=== PATIENT | female | born 1985 | race Caucasian/White ===

== ENCOUNTER 2016-11-03 07:01 | Inpatient (IN) | payer SELFPAY ==
[2016-11-03] MEDS ORDERED: Sodium Chloride 0.9% 10 ML Syringe FLUSH PRN ×2 (07:12→07:27)
[2016-11-03] MEDS ORDERED: Ampicillin 2 GM in Sodium Chloride 0.9% 100 ML IV ONE ×4 (07:45)
[2016-11-03] MEDS ORDERED: Sodium Chloride 0.9% 250 ML IV SCH (08:00)
--- NOTE | 2016-11-03 11:20 | US ---
INDICATION: position, post version. To make sure head is down and hand not before the head. OB ULTRASOUND LIMITED: Multiple ultrasonic images were obtained and revealed a cephalic-presenting fetus with spine on the maternal right. brow is facing to the left. Placenta is anterior fundal, grade 1-2, without evidence of previa. A normal amount of amniotic fluid was seen. Regular heart rate of 140 BPM was noted. No adnexal mass lesion or free fluid collection was demonstrated. hand is noted along side the face - jaw area. The second hand was just below it. No hand was caudal to the head. IMPRESSION: Cephalic presentation. No hand presenting. MTDD
[2016-11-03] MEDS ORDERED: fentaNYL 300 MCG in Ropivacaine 200 ML IV ONE (13:25)
[2016-11-03] MEDS ORDERED: fentaNYL 100 MCG/2 ML SDV EPIDUR ONE (13:25)
[2016-11-03] MEDS ORDERED: Lactated Ringers 1,000 ML IV ONE (13:30)
[2016-11-03] MEDS ORDERED: Lactated Ringers 1,000 ML IV SCH (14:20)
[2016-11-03] MEDS ORDERED: Naloxone 0.4 MG in Sodium Chloride 0.9% 100 ML IV PRN (14:57)
[2016-11-03] MEDS ORDERED: Promethazine 25 MG/ML SDV IV PRN (14:57)
[2016-11-03] MEDS ORDERED: diphenhydrAMINE 50 MG/ML SDV IVPUSH PRN (14:57)
[2016-11-03] MEDS ORDERED: ePHEDrine 50 MG/ML SDV IVPUSH PRN (14:57)
[2016-11-03] MEDS ORDERED: Naloxone 0.4 MG/ML SDV IVPUSH PRN (14:57)
[2016-11-03] MEDS ORDERED: Ondansetron 4 MG/2 ML SDV IVPUSH PRN (14:58)
[2016-11-03] MEDS ORDERED: Oxytocin 10 Units/1 ML SDV IM ONE (15:30)
[2016-11-03] MEDS: Ibuprofen 600 MG Tab PO PRN ×2 (16:30→21:46)
[2016-11-04] MEDS: Ibuprofen 600 MG Tab PO PRN (09:41)
--- NOTE | 2016-11-04 14:22 | PN ---
DATE SEEN: 11/04/2016 SUBJECTIVE: Annie Watts is a 31-year-old multigravida female. day 1, no complaints or concerns. Little cramping with nursing, nursing is going well, minimal perineal discomfort. Voiding without difficulty. PHYSICAL EXAMINATION: U-1 tone satisfactory, perineum intact. day 1, no problems. PLAN: No hemoglobin was performed. Blood loss was minimal. Complementary care and well being. Plan discharge tomorrow 11/05. /[id number] /MARTA
[2016-11-04 19:02] VITALS: BP 108/62
--- NOTE | 2016-11-04 19:04 | HP ---
ADMISSION DATE: 11/03/2016 HISTORY OF PRESENT ILLNESS: Annie Watts is a multigravida female, 39 weeks gestation admitted for induction of labor. CLINICAL INDICATION: Term , history of transverse lie with manipulation one week ago, satisfactory well being, and favorable cervix. Please see records. PHYSICAL EXAMINATION: VITAL SIGNS: Stable. Pelvic exam revealed a 3 cm dilatation, 50% effaced, -1 station. Ultrasound confirmed vertex presentation without hand presentation. Risks and benefits discussed about induction, agreed to. Amniotomy was performed with clear fluid. Labor began in earnest. An epidural was placed with good analgesic benefit at 5 cm. She went to complete within a very brief time. Satisfactory well being. No hypertensive related issues. When complete, when asked to participate with delivery, full anterior cervix removed with one push without difficulty. The second stage of labor progressed well. Over the course of about 20 minutes from maternal effort improved, the child was delivered within an intact perineum in MICH presentation. Both nares and oropharynx were suctioned, no nuchal cord delivered without difficulty; was re-suctioned, warmed, gently cleanse, placed on mom's tummy. Delayed cord clamping until absent palpable cord pulse, cord blood was stripped toward the infant. Female , 7 pounds 2 ounces. scores are 9 and 9. Cord was doubly clamped, dad cut the cord in attendance. Three cord vessels were identified. Cord blood was obtained. There was spontaneous placental separation, three cord vessels intact. Uterine tone was maintained by 10 units intramuscular Pitocin and uterine massage. The perineum was inspected, free of perineal tears. There were two upper labial minora abrasions, with 1 bleeder. This was closed with a [id number] 4-0 Vicryl suture. Blood loss was minimal about 100 mL. Uterine tone was maintained. The patient was well since completion of the delivery process. /[id number] /MARTA
--- NOTE | 2016-11-05 04:12 | DISCH ---
DISCHARGE DATE: 11/04/2016 Annie Watts is a 31-year-old multigravida female, ready for discharge. Please see earlier note. Up, ambulating, doing well. Lochia and flow are moderate. Nursing is going well. Discharge for appointment in 6 weeks. vitamins and good nutrition in the meantime. /[id number] ANTONIO/MARTA
--- NOTE | 2016-11-06 09:25 | HP ---
ADMISSION DATE: 11/03/2016 ADDENDUM: It should be noted that Crystal was group B rectovaginal culture positive. Ampicillin 2 doses were provided, 2 g on admission, 1 g at 4-hour interval. Third dose not available, delivered prior to that time. Adequate antibiotic prophylaxis for group B strep. /[id number] ANTONIO/MARTA
== END 2016-11-04 18:35 | disposition home or self-care (01) | DRG 775 ==
LOC: FB.OBCHECK 07:01 → FB.OB 07:01 → FB.OBCHECK 07:02 → OBSVTOIN 09:44
PROVIDERS: ADMIT Family Medicine; ATTEND Family Medicine
PROC: 10E0XZZ Delivery of Products of Conception, External Approach (ICD-10-PCS; principal; 2016-11-03)
PROC: 10907ZC Drainage of Amniotic Fluid, Therapeutic from Products of Conception, Via Natural or Artificial Opening (ICD-10-PCS; 2016-11-03)
PROC: 3E0R3CZ (ICD-10-PCS; 2016-11-03)
DX: O99.824 Streptococcus B carrier state complicating childbirth (principal); Z3A.39 39 weeks gestation of pregnancy; Z37.0 Single live birth
CPT/HCPCS: 01967-QZ; 76815; A4217; A9270-GY; J0290; J2590; J2795; J3010; J7030; J7050; J7120

== ENCOUNTER 2018-09-09 07:20 | Inpatient (IN) | payer MEDICAID ==
[2018-09-09] MEDS ORDERED: Scopolamine 1.5 MG Transdermal Patch ONE (07:36)
[2018-09-09] MEDS ORDERED: Promethazine 6.25 MG in Sodium Chloride 0.9% 50 ML IV PRN (07:51)
[2018-09-09] MEDS ORDERED: Naloxone 0.4 MG/ML SDV IVPUSH PRN (07:51)
[2018-09-09] MEDS ORDERED: Famotidine/Normal Saline 20 MG in Premix Bag 1 BAG IV PRN (07:51)
[2018-09-09] MEDS ORDERED: Ondansetron 4 MG/2 ML SDV IVPUSH PRN (07:51)
[2018-09-09] MEDS ORDERED: Promethazine 12.5 MG in Sodium Chloride 0.9% 50 ML IV PRN (07:51)
[2018-09-09] MEDS ORDERED: Scopolamine 1.5 MG Transdermal Patch TOP ONE (07:51)
[2018-09-09] MEDS ORDERED: ePHEDrine 50 MG/ML SDV IVPUSH PRN (07:51)
[2018-09-09] MEDS ORDERED: Naltrexone 50 MG Tab PO PRN (07:51)
[2018-09-09] MEDS ORDERED: Nalbuphine 10 MG/1 ML Vial IVPUSH PRN (07:51)
[2018-09-09] MEDS ORDERED: diphenhydrAMINE 50 MG/ML SDV IVPUSH PRN (07:51)
[2018-09-09] MEDS ORDERED: diphenhydrAMINE 50 MG/ML SDV IV PRN (07:51)
[2018-09-09] MEDS ORDERED: Lactated Ringers 500 ML IV SCH ×2 (08:00)
[2018-09-09] MEDS ORDERED: Sodium Chloride 0.9% 10 ML Syringe FLUSH PRN (08:02)
[2018-09-09] MEDS ORDERED: Oxytocin 10 Units/1 ML SDV IM ONE (09:51)
[2018-09-09] MEDS: Ibuprofen 600 MG Tab PO PRN ×5 (11:05→23:35)
[2018-09-09] MEDS ORDERED: Morphine PF 10 MG/10 ML SDV EPIDUR ONE (20:34)
[2018-09-09] MEDS ORDERED: fentaNYL 100 MCG/2 ML SDV EPIDUR ONE (20:34)
[2018-09-09] MEDS: Docusate Sodium 100 MG Cap PO SCH (22:23)
[2018-09-10] MEDS: Ibuprofen 600 MG Tab PO PRN ×2 (05:49→12:36)
[2018-09-10] MEDS: Docusate Sodium 100 MG Cap PO SCH (09:41)
--- NOTE | 2018-09-10 09:56 | DEL ---
DATE OF DELIVERY: 09/09/2018 Annie Watts is a 33-year-old multigravida female, EDC 09/17/2018, presenting in active labor. She was seen the evening before, some uterine irritability. Satisfactory well being. Intact membranes. Negative AmniSure, comfortable blood pressure and well being, was discharged home. She slept reluctantly through the night. Beginning late morning, labor began in earnest. She contacted the OB floor, recommended she come to participate in delivery. Upon admission, active labor. Satisfactory heart tones. She was 8 cm, intact membranes, group B rectovaginal culture negative. After establishing well being, amniotomy was performed. Nice clear fluid. Second stage of labor progressed well with intrathecal in place for analgesia. During the second stage of labor, the patient was catheterized for about 6 ounces of michi clear urine. Over the course of about 20 minutes, the patient labored well, pushed well, descended, rotated, delivered in HENRY fashion over midline episiotomy. Nuchal cord was present x1, loose, removed, delivered without difficulty in McRobert's position. Mouth and oropharynx were suctioned, child was warmed gently, placed on mom's tummy for routine resuscitation. Cord was palpated until no further palpable pulse, cord was double clamped and cut with dad in accordance. Three-cord vessels obtained. Cord blood was obtained for investigations as appropriate. There was spontaneous placental separation, 3-cord vessel was intact. Uterine tone was maintained by 10 units of intramuscular Pitocin. Sponge was placed in the vagina. Midline episiotomy did not extend, was repaired in complex fashion with 2-0 Chromic suture. Surgical result was excellent. Blood loss 150 mL. ASSESSMENT: 1. Term intrauterine at 39 weeks' gestation. 2. Spontaneous labor. 3. Amniotomy, intrathecal analgesia with good benefit, midline episiotomy without extension. 4. 7 pounds 9 ounces female , score was 9 and 9. 5. Planned nursing. PLAN: Routine course expected. No complicating issues. Routine care. /[id number] /MARTA
--- NOTE | 2018-09-10 10:37 | PN ---
DATE SEEN: 09/10/2018 SUBJECTIVE: Annie Watts is a 33-year-old, 7, para 4 mom. One day . Up, doing well, and ambulating. Minimal bleeding. Minimal perineal discomfort. LABORATORY STUDIES: Hemoglobin 12.5 and hematocrit 36.6. OBJECTIVE: Perineum intact, minimal bruising, U-2. Good bowel sounds. ASSESSMENT: day #1, no problems. PLAN: Consider discharge this evening or tomorrow, fluid while present inhouse. Routine care and recommendations. /[id number] ANTONIO/MARTA
--- NOTE | 2018-09-10 11:34 | HP ---
ADMISSION DATE: 09/09/2018 HISTORY OF PRESENT ILLNESS: Annie Watts is a 33-year-old, 7, para 3, female, 39 weeks' gestation, admitted to [facility] on the morning of 09/09/2017. Has been seen the evening prior, with some uterine irritability, contractions. well being was satisfactory. AmniSure was negative. She was dilated 3 cm, but ballotable, and on observation appropriate. Contracted through the evening. Presented with progressive labor beginning at 3 o'clock. On admission, she was assessed by nursing staff, found to be 8 cm. Intact membranes, satisfactory and maternal well being. PHYSICAL EXAMINATION: VITAL SIGNS: Stable. CHEST: Clear on mom. HEART: Regular without ectopy or murmur. ABDOMEN: Term gravid uterus. Exam was complementary. HOSPITAL COURSE: The patient was admitted for planned delivery. Anesthesia was in-house, intrathecal was placed, good analgesic benefit. Once in place, amniotomy was performed, clear fluid. The first stage of labor progressed well. When complete, I was asked to assessed. Full anterior rim. Second stage of labor went well, anterior rim required a couple of gentle contractions, moved. Over the course of 20 minutes, delivered and brought the baby down the perineum, HENRY presentation. Midline episiotomy was performed, small size. The child was delivered without incidence in HENRY presentation. Nuchal cord was reduced. Mouth and oropharynx were suctioned, warmed, and placed on mom's tummy. Cord was observed until no further pulsations. Cord clamped, was cut on dad's part. Male , weight 7 pounds 9 ounces. scores 9 and 9. There was spontaneous placental separation after cord blood was obtained, episiotomy was repaired with 2-0 chromic suture. Good surgical results. Blood loss 150 mL. ASSESSMENT: 1. Term intrauterine . 2. Spontaneous labor. 3. Amniotomy, group B rectovaginal culture negative. 4. Intrathecal analgesia, 7 pounds 9 ounces male , scores 9 and 9. 5. Breast feeding. PLAN: Routine course. Expect no complicating issues. Expectations accordingly. /[id number] /MARTA
[2018-09-10 19:41] VITALS: BP 113/70
== END 2018-09-10 20:35 | disposition home or self-care (01) | DRG 807 ==
LOC: FB.OB 07:20 → FB.OBCHECK 07:20 → FB.OB 07:22
PROVIDERS: ADMIT Family Medicine; ATTEND Family Medicine
PROC: 10E0XZZ Delivery of Products of Conception, External Approach (ICD-10-PCS; principal; 2018-09-09)
PROC: 0W8NXZZ Division of Female Perineum, External Approach (ICD-10-PCS; 2018-09-09)
PROC: 10907ZC Drainage of Amniotic Fluid, Therapeutic from Products of Conception, Via Natural or Artificial Opening (ICD-10-PCS; 2018-09-09)
PROC: 6A550ZT Pheresis of Cord Blood Stem Cells, Single (ICD-10-PCS; 2018-09-09)
PROC: 00HU33Z Insertion of Infusion Device into Spinal Canal, Percutaneous Approach (ICD-10-PCS; 2018-09-09)
DX: O69.81X0 Labor and delivery complicated by cord around neck, without compression, not applicable or unspecified (principal); Z37.0 Single live birth; Z3A.39 39 weeks gestation of pregnancy
CPT/HCPCS: 36415; 51701; 59409; 85014; 85018; A9270-GY; J2590; J7120